=== PATIENT | female | born 2000 | race Hispanic/Latino ===

== ENCOUNTER 2022-01-29 15:48 | Emergency (ER) | payer OTHER ==
[~2022-01-29] VITALS: Ht 149.9 cm; Wt 52.2 kg
[2022-01-29 16:18] VITALS: BP 105/68
[2022-01-29 17:07] LABS: APPEARANCE,URINE CLOUDY (CLEAR); BILIRUBIN,URINE NEGATIVE (NEGATIVE); COLOR,URINE YELLOW (YELLOW); GLUCOSE, URINE (UA) NEGATIVE (NEGATIVE); KETONES,URINE NEGATIVE (NEGATIVE); LEUKOCYTE ESTERASE ,URINE 500 Leu/uL (NEGATIVE); NITRATE,URINE 2+ (NEGATIVE); OCCULT BLOOD,URINE MODERATE (NEGATIVE); PH,URINE 5.5 (5.0-8.0); PROTEIN,URINE 70 mg/dL (NEGATIVE); UROBILINOGEN,URINE 0.2 mg/dL (0.2-1.0)
[2022-01-29 17:11] LABS: BACTERIA,URINE RARE /HPF (None Seen); MUCUS,URINE RARE LPF (None Seen); SQUAMOUS EPITHELIAL CELL,UR RARE /HPF (0-2); WBC,URINE TNTC /HPF (0-1)
[2022-01-29] MEDS ORDERED: CEPH500B PO (17:57)
[2022-01-29] MEDS ORDERED: CEFTRIAXONE 1G VIAL IVP ONE (18:00)
== END 2022-01-29 19:00 | disposition home or self-care (01) ==
LOC: EDH 15:48
DX: N39.0 Urinary tract infection, site not specified (principal)
CPT/HCPCS: 99283; 96374; 87077; 87088; 87186; 81001; 81025; J0696